=== PATIENT | male | born 1970 | race Asian ===

== ENCOUNTER → 2018-09-05 | Outpatient (CLI) | payer SELFPAY ==
[2018-09-10 09:44] LABS: Hepatitis B Surface Antigen Preliminary Reactive (Nonreactive)
[2018-11-29 11:40] LABS: Meconium Buprenorphine NEGATIVE; Meconium Norbuprenorphine NEGATIVE
== END | disposition home or self-care (01) ==
LOC: LABSPEC 10:04
PROVIDERS: Visit Provider Pathology Anatomic Pathology & Clinical Pathology
DX: Z00.00 Encounter for general adult medical examination without abnormal findings (principal)
CPT/HCPCS: 87340

== ENCOUNTER → 2018-09-18 10:36 | Outpatient (CLI) | payer OTHER, SELFPAY ==
--- NOTE | 2020-04-09 18:15 | PN.PCM_ITS ---
Type of Wound Date of Service: 04/09/20
--- NOTE | 2020-04-09 18:15 | PCM.WC.PN ---
Type of Wound Date of Service: 04/09/20
--- NOTE | 2020-08-23 07:30 | PCM.PR.TP ---
Tobacco - Initial Assessment Tobacco - 30-Day Assessment Tobacco - 60-Day Assessment Tobacco - 90-Day Assessment Tobacco - Final Assessment Nutrition Survey
== END ==
PROVIDERS: Referring Provider Internal Medicine; Visit Provider Internal Medicine
DX: Z00.00 Encounter for general adult medical examination without abnormal findings (principal)